=== PATIENT | male | born 1960 | race Caucasian/White ===

== ENCOUNTER 2023-06-22 08:30 | Outpatient (CLI) | payer BC ==
[2023-06-22 10:12] LABS: #Basophils 0.1 10x3/uL (0.0-0.2); #Eosinphils 0.7 10x3/uL (0.0-0.5); #Monocytes 0.7 10x3/uL (0.0-1.1); #Neutrophils 5.6 10x3/uL (1.5-8.4); %Basophils 1.1 % (0.0-2.0); %Eosinophils 6.8 % (0.0-6.0); %Lymphocytes 25.6 % (18.0-47.0); %Monocytes 7.2 % (0.0-10.0); Hemoglobin 16.6 g/dL (13.5-17.5); Mean Corpuscular HGB CONC 34.6 g/dL (32.0-36.0); Mean Corpuscular Hemoglobin 30.8 pg (27.0-33.0); Mean Corpuscular Volume 89.1 fl (81.2-95.1); Mean Platelet Volume 8.6 fl (7.4-10.4); Platelet Count 362 10x3/uL (150-450); RBC Distribution Width 12.9 % (11.5-14.5); Red Blood Cell (RBC) Count 5.39 10x6/uL (4.32-5.72); White Blood Cell (WBC) Count 9.5 10x3/uL (3.5-10.5)
[2023-06-22 10:28] LABS: Anion Gap 13 mmol/L (10-20); BUN (Urea Nitrogen) 14 mg/dL (8.4-25.7); Calc. Creatinine Clearance 0 mL/min (70-130); Calcium 9.7 mg/dL (7.8-10.44); Carbon Dioxide 26 mmol/L (23-31); Chloride 102 mmol/L (98-107); Estimated GFR 73; Glucose 89 mg/dL (80-115); Potassium 4.3 mmol/L (3.5-5.1); Sodium 137 mmol/L (136-145)
[2023-06-22 10:49] LABS: Prothrombin Time 10.3 sec (9.5-12.1)
== END 2023-06-22 08:31 | disposition home or self-care (01) ==
LOC: LABBT 08:30
PROVIDERS: ATTEND Orthopaedic Surgery
DX: Z01.818 Encounter for other preprocedural examination (principal); M17.12 Unilateral primary osteoarthritis, left knee
CPT/HCPCS: 80048; 85025; 85610; 87081; 93005; 93010

== ENCOUNTER 2023-06-25 07:03 | Observation (INO) | payer BC ==
[2023-06-25] MEDS ORDERED: Sodium Chloride 0.9% 100 ML ONE ×2 (07:19→07:29)
[2023-06-25] MEDS ORDERED: CEFAZOLIN 2 GM VIAL ONE (07:19)
[2023-06-25] MEDS ORDERED: Tranexamic Acid 1,000 MG/10 ML VIAL ONE (07:29)
[2023-06-25] MEDS ORDERED: fentaNYL 50 mcg/mL 1 mL Vial ONE ×2 (08:00→09:37)
[2023-06-25] MEDS ORDERED: Ropivacaine 0.5% HCl/PF (150 MG/30 ML VIAL) ONE (08:00)
[2023-06-25] MEDS ORDERED: Midazolam HCl 2 mg/2 ml Vial ONE ×2 (08:00→09:45)
[2023-06-25] MEDS ORDERED: Bupivacaine PF 0.5% 30 ML VIAL ONE (08:54)
[2023-06-25] MEDS ORDERED: Vancomycin (BATCH) 1.5 GM/300 ML BAG ONE (09:11)
[2023-06-25] MEDS ORDERED: Propofol 500 MG/50 ML VIAL ONE (09:29)
[2023-06-25] MEDS ORDERED: Promethazine HCl 25 MG/ML VIAL IM PRN ×3 (09:31→11:45)
[2023-06-25] MEDS ORDERED: Ondansetron PF 4 MG/2 ML Vial IVP PRN ×2 (09:31→11:45)
[2023-06-25] MEDS ORDERED: Zolpidem Tartrate 5 MG TAB PO PRN ×2 (09:31→11:45)
[2023-06-25] MEDS ORDERED: diphenhydrAMINE 25 MG CAP PO PRN (09:31)
[2023-06-25] MEDS ORDERED: HYDROcodone/Acetaminophen 10/325 mg Tablet PO PRN ×3 (09:31→11:45)
[2023-06-25] MEDS ORDERED: Acetaminophen 325 MG TAB PO PRN (09:31)
[2023-06-25] MEDS ORDERED: fentaNYL 50 mcg/mL 1 mL Vial SLOW IVP PRN ×3 (09:31→11:42)
[2023-06-25] MEDS ORDERED: Ondansetron PF 4 MG/2 ML Vial ONE (09:37)
[2023-06-25] MEDS ORDERED: Mometasone 100 MCG/Formoterol 5 MCG 120 PUFF INHALER INH PRN (09:53)
[2023-06-25] MEDS ORDERED: PROPOFOL 20 ML ONE (10:56)
[2023-06-25] MEDS ORDERED: Ondansetron HCl/PF 4 MG/2 ML Vial IVP PRN (11:35)
[2023-06-25] MEDS ORDERED: traMADol HCl 50 MG TAB PO PRN (11:45)
[2023-06-25] MEDS ORDERED: Ropivacaine 0.2% 550 ML 550 ML NERVE BLCK SCH (11:45)
[2023-06-25 13:05] VITALS: BMI 30.4
[2023-06-25] MEDS ORDERED: Ketorolac Tromethamine 30 MG (1 mL) VIAL IVP SCH (14:00)
[2023-06-25] MEDS: Sodium Chloride 0.9% 1,000 ML IV SCH (14:19)
[2023-06-25] MEDS: Ketorolac Tromethamine 30 MG (1 mL) VIAL IVP SCH (14:19)
[2023-06-25] MEDS: CEFAZOLIN 2 GM in Sodium Chloride 0.9% 100 ML IVPB SCH (16:11)
[2023-06-25] MEDS: traMADol HCl 50 MG TAB PO PRN (16:12)
[2023-06-25] MEDS: Aspirin 81 mg Enteric Coated Tablet PO SCH (19:53)
[2023-06-25] MEDS: HYDROcodone/Acetaminophen 10/325 mg Tablet PO PRN (22:02)
[2023-06-26 05:07] LABS: Hematocrit 39.7 % (42.0-52.0); Hemoglobin 13.4 g/dL (14.0-18.0); Mean Corpuscular HGB CONC 33.8 g/dL (32.0-36.0); Mean Corpuscular Volume 91.9 fl (78.0-98.0); Mean Platelet Volume 8.5 fL (7.4-10.4); Platelet Count 265 10x3/uL (130-400); RBC Distribution Width 12.8 % (11.5-14.5); Red Blood Cell (RBC) Count 4.32 mill/uL (4.70-6.10); White Blood Cell (WBC) Count 10.7 10x3/uL (4.8-10.8)
[2023-06-26] MEDS: Ferrous Gluconate 324 MG TAB PO SCH (08:20)
[2023-06-26] MEDS: Multivitamin W/ Minerals 1 TAB PO SCH (08:21)
[2023-06-26] MEDS: Losartan 25 MG TAB PO SCH (08:22)
[2023-06-26] MEDS: Hydrochlorothiazide 25 MG TAB PO SCH (08:22)
[2023-06-26] MEDS: Senokot S 8.6-50 MG TAB PO SCH (08:23)
[2023-06-26 08:27] VITALS: BP 122/82; TEMP 97.8
== END 2023-06-26 10:27 | disposition home or self-care (01) ==
LOC: SDC 07:03 → SURG A 13:02
PROVIDERS: ADMIT Orthopaedic Surgery; ATTEND Orthopaedic Surgery
PROC: 0SRD0JZ Replacement of Left Knee Joint with Synthetic Substitute, Open Approach (ICD-10-PCS; principal; 2023-06-25)
DX: M17.12 Unilateral primary osteoarthritis, left knee (principal); J45.909 Unspecified asthma, uncomplicated; J30.9 Allergic rhinitis, unspecified; Z90.49 Acquired absence of other specified parts of digestive tract; Z98.890 Other specified postprocedural states; Z79.899 Other long term (current) drug therapy
CPT/HCPCS: 36415; 85027; A4306; C1776; J0665; J1885; J2250; J2405; J2704; J2795; J3010; J3370; J3490; J7050